=== PATIENT | male | born 2000 ===

== ENCOUNTER 2023-07-07 11:12 | Outpatient (REF) | payer MEDICAID, SELFPAY ==
[2023-07-07 13:19] LABS: OBS1 NEGATIVE (NEGATIVE); OBS2 NEGATIVE (NEGATIVE); OBS3 NEGATIVE (NEGATIVE)
[2023-07-07 13:20] LABS: OBS Int Ctl Valid YES; OBS Lot 50422 1L
== END 2023-07-07 11:13 | disposition home or self-care (01) ==
LOC: HO.HHCL 11:12
PROVIDERS: Visit Provider Emergency Medicine
DX: K92.1 Melena (principal)
CPT/HCPCS: 82270